=== PATIENT | male | born 1985 | race Caucasian/White ===

== ENCOUNTER 2020-01-19 08:39 | Outpatient (REF) | payer MEDICAID, SELFPAY | END 2020-01-19 08:40 | disposition home or self-care (01) | LOC: HO.LAB 08:39 | PROVIDERS: Visit Provider Internal Medicine | DX: Z20.828 Contact with and (suspected) exposure to other viral communicable diseases (principal) | CPT/HCPCS: C9803; U0003 ==

== ENCOUNTER 2020-06-28 15:36 | Outpatient (REF) | payer MEDICAID, SELFPAY ==
[2020-06-28 15:53] LABS: COVID-19 Test Negative (Negative)
== END 2020-06-28 15:37 | disposition home or self-care (01) ==
LOC: HO.LAB 15:36
PROVIDERS: Visit Provider Internal Medicine
DX: Z20.822 Contact with and (suspected) exposure to COVID-19 (principal)
CPT/HCPCS: 36415; 87635; C9803

== ENCOUNTER 2022-05-25 01:47 | Emergency (ER) | payer MEDICAID, SELFPAY ==
[2022-05-25 01:59] VITALS: BP 106/66; BP 146/72; PULSE 66; RESP 16; TEMP 36.7; O2SAT 95; O2SAT 97; BMI 25.8
--- NOTE | 2022-05-25 02:06 | PC.NURSE ---
registration entered room and pt was not present seconds after this RN finished triaging pt. This RN went back into the room and pt was not there. pt was not in any bathrooms or in the hallway. registration stated he saw the patient leave out the front doors. Pt did arrive by EMS and was fully triaged by this RN and was aware that he was awaiting the provider for further assessment
== END 2022-05-25 02:09 | disposition left against medical advice (07) ==
PROVIDERS: Emergency Provider Emergency Medicine
DX: M54.50 Low back pain, unspecified (principal)
CPT/HCPCS: 99281; 99284